=== PATIENT | female | born 1985 | race Two or more races ===

== ENCOUNTER → 2018-04-11 | Outpatient (CLI) | payer OTHER ==
[~2018-04-11] MED LIST: Iron PO; LINA72CA PO; OMEP20TA62 PO; Vitamin D PO; [UNRECOGNIZED DRUG - CODE] PO
[2018-04-11 09:23] LABS: MEAN CORPUSCULAR HEMOGLOBIN 24.4 pg (27.0-34.8); MEAN CORPUSCULAR HGB CONC 31.6 g/dL (32.4-35.8); MEAN CORPUSCULAR VOLUME 77.2 fL (80-100); RED BLOOD COUNT 3.99 x10^6/uL (3.82-5.3)
[2018-04-11 09:48] LABS: BASOPHILS # (AUTO) 0.04 x10^3/uL (0-0.1); BASOPHILS % (AUTO) 1 % (0-1); EOSINOPHILS # (AUTO) 0.11 x10^3/uL (0-0.4); EOSINOPHILS % (AUTO) 2 % (1-7); LYMPHOCYTES # (AUTO) 1.48 x10^3/uL (1-3.4); LYMPHOCYTES % (AUTO) 22 % (22-44); MD SCAN; MEAN PLATELET VOLUME 11.3 fL (7.4-10.4); MONOCYTES % (AUTO) 8 % (2-9); NEUTROPHILS # (AUTO) 4.56 x10^3/uL (1.8-6.8); NEUTROPHILS % (AUTO) 68 % (42-75); PLATELET COUNT 209 x10^3/uL (130-400)
== END | disposition home or self-care (01) ==
LOC: STAR 08:11
PROVIDERS: ATTEND Specialist
DX: Z01.818 Encounter for other preprocedural examination (principal); N83.201 Unspecified ovarian cyst, right side
CPT/HCPCS: 36415; 85025

== ENCOUNTER 2018-04-18 12:35 | Day surgery (SDC) | payer OTHER ==
[~2018-04-18] VITALS: Ht 154.9 cm; Wt 44.8 kg
[2018-04-18] MEDS ORDERED: LACTATED RINGERS 1,000 ML IV SCH (13:10)
[2018-04-18] MEDS ORDERED: LIDOCAINE-MPF 1%, 2ML INFIL ONE (13:30)
[2018-04-18 13:59] LABS: HCG UR SG 1.023 (1.003-1.030)
[2018-04-18] MEDS ORDERED: BUPIVACAINE/PF-EPI 0.5% 1:200K ONE (15:33)
[2018-04-18] MEDS ORDERED: BUPIVACAINE/PF 0.25% ONE (15:39)
[2018-04-18] MEDS ORDERED: EPINEPHRINE 1 MG/ML, 1ML ONE (15:39)
[2018-04-18] MEDS ORDERED: MIDAZOLAM 1 MG/ML, 2ML ONE (15:40)
[2018-04-18] MEDS ORDERED: FENTANYL PF 250 MCG/5ML ONE (15:41)
[2018-04-18] MEDS ORDERED: SUCCINYLCHOLINE 20 MG/ML, 10ML ONE (15:42)
[2018-04-18] MEDS ORDERED: ONDANSETRON 2MG/ML, 2ML ONE (15:42)
[2018-04-18] MEDS ORDERED: ROCURONIUM 10MG/ML,5ML ONE (15:42)
[2018-04-18] MEDS ORDERED: PROPOFOL 10 MG/ML, 20ML ONE (15:42)
[2018-04-18] MEDS ORDERED: DEXAMETHASONE 4 MG/ML, 1ML ONE (15:42)
[2018-04-18] MEDS ORDERED: CEFAZOLIN 1,000 MG ONE (15:44)
[2018-04-18] MEDS ORDERED: LIDOCAINE 4%, 4 ML SYR/CANN TP ONE (15:44)
[2018-04-18] MEDS ORDERED: KETOROLAC 30 MG/1 ML ONE (15:44)
[2018-04-18] MEDS ORDERED: PROMETHAZINE 25 MG/ML, 1ML IV PRN (16:30)
[2018-04-18] MEDS ORDERED: ALBUTEROL SULFATE 2.5 MG/3 ML NPPB PRN (16:30)
[2018-04-18] MEDS ORDERED: MIDAZOLAM 1 MG/ML, 2ML IV PRN (16:30)
[2018-04-18] MEDS ORDERED: PROMETHAZINE 12.5 MG SUPP PR PRN (16:30)
[2018-04-18] MEDS ORDERED: ACETAMINOPHEN 325 MG TABLET PO PRN (16:30)
[2018-04-18] MEDS ORDERED: DIAZEPAM 5 MG/ML, 2ML IVPush PRN (16:30)
[2018-04-18] MEDS ORDERED: hydrALAzine 20 MG/ML, 1ML IV PRN (16:30)
[2018-04-18] MEDS ORDERED: MORPHINE SULFATE 4 MG/ML, 1ML IVPush PRN (16:30)
[2018-04-18] MEDS ORDERED: ONDANSETRON 2MG/ML, 2ML IV PRN ×2 (16:30→21:00)
[2018-04-18] MEDS ORDERED: LABETALOL 5MG/ML, 20ML IV PRN (16:30)
[2018-04-18] MEDS ORDERED: MEPERIDINE/PF 25MG/0.5ML IVPush PRN (16:30)
[2018-04-18] MEDS ORDERED: ONDANSETRON ODT 8 MG PO PRN (16:30)
[2018-04-18] MEDS ORDERED: HYDROmorphone 2 MG/ML, 1ML IVPush PRN (16:30)
[2018-04-18] MEDS ORDERED: FENTANYL PF 100 MCG/2ML IV PRN ×2 (16:30→21:00)
[2018-04-18] MEDS ORDERED: OXYcodone 5 MG/5 ML ORAL.SOL UDC PO PRN (16:30)
[2018-04-18] MEDS ORDERED: EPHEDRINE 50 MG/ML, 1ML IVPush PRN (16:30)
[2018-04-18] MEDS ORDERED: HALOPERIDOL 5 MG/ML IV PRN (16:30)
[2018-04-18] MEDS ORDERED: MEPERIDINE/PF 50 MG/ML ONE (17:36)
[2018-04-18] MEDS ORDERED: OXYcodone 5 MG/5 ML ORAL.SOL UDC ONE (17:50)
[2018-04-18] MEDS ORDERED: PLEASE ENTER ALLERGIES MC SCH (19:00)
[2018-04-18] MEDS ORDERED: KETOROLAC 30 MG/1 ML IV PRN (21:00)
[2018-04-18] MEDS ORDERED: HYDROcodone/APAP 7.5-325MG/15ML UDC PO PRN (21:00)
== END 2018-04-18 19:35 | disposition home or self-care (01) ==
LOC: OUT 12:35 → 4NOR 18:02 → OUT 19:35
PROVIDERS: ATTEND Specialist
DX: Z30.2 Encounter for sterilization (principal); F17.210 Nicotine dependence, cigarettes, uncomplicated; K21.9 Gastro-esophageal reflux disease without esophagitis; Z91.041 Radiographic dye allergy status
CPT/HCPCS: 58301; 58661; 81025; 88302; 88305; J0171; J0330; J0690; J1100; J1885; J2250; J2405; J2704; J3010; J3490; J7120; G0378